=== PATIENT | male | born 1950 | race Caucasian/White ===

== ENCOUNTER 2017-11-18 17:23 | Emergency (ER) | payer OTHER ==
[~2017-11-18] VITALS: Ht 182.9 cm; Wt 105.0 kg
[2017-11-18 17:34] VITALS: BP_SYST 154
[2017-11-18] MEDS ORDERED: LIDOCAINE HCL 1% 20ML VIAL (Pyxis) INJ MC ONE (18:15)
[2017-11-18] MEDS ORDERED: ACETAMINOPHEN 325MG TABLET PO ONE (18:15)
[2017-11-18] MEDS ORDERED: BACITRACIN ZINC OINT UDPKT TOP ONE (20:15)
== END 2017-11-18 20:24 | disposition home or self-care (01) ==
LOC: ER 18:22 → EDBD 18:22 → ER 20:24
DX: S51.812A Laceration without foreign body of left forearm, initial encounter (principal); E11.9 Type 2 diabetes mellitus without complications; W20.8XXA Other cause of strike by thrown, projected or falling object, initial encounter; Y93.89 Activity, other specified; Y92.89 Other specified places as the place of occurrence of the external cause; Y99.8 Other external cause status
CPT/HCPCS: 12001; 73090; 99284; A4217; J3490; Z7610; 99283